=== PATIENT | female | born 1970 | race Caucasian/White ===

== ENCOUNTER 2017-05-02 05:14 | Inpatient (IN) | payer BC ==
[2017-04-26 14:26] VITALS: BMI 24.5
--- NOTE | 2017-05-02 08:21 | HP ---
History & Physical Update - History History: No Change - Physical Physical: No Change - Assessment Assessment: No Change - Plan Plan: No Change
[2017-05-02] MEDS ORDERED: MIDAZOLAM HCL 2 MG/2 ML SINGLE DOSE VIAL ONE ×4 (09:08→09:26)
[2017-05-02] MEDS ORDERED: ROCURONIUM BROMIDE 50 MG/5 ML VIAL ONE (09:08)
[2017-05-02] MEDS ORDERED: PROPOFOL 20 ML ONE ×3 (09:08)
[2017-05-02] MEDS ORDERED: ROPIVACAINE HCL 0.5% 30ML VIAL ONE (09:25)
[2017-05-02] MEDS ORDERED: VASOPRESSIN 20 UNITS/ML VIAL IV ONE (09:50)
[2017-05-02] MEDS ORDERED: DEXAMETHASONE SOD PHOSPHATE 4 MG/1 ML VIAL ONE (10:18)
[2017-05-02] MEDS ORDERED: ceFAZolin SODIUM 1 GM VIAL ONE ×2 (10:24→17:49)
[2017-05-02] MEDS ORDERED: ceFAZolin SODIUM 1 GM VIAL IVPB ONE (10:25)
[2017-05-02] MEDS ORDERED: ACETAMINOPHEN INJECTION 0 ML IVPB ONE (10:30)
[2017-05-02] MEDS ORDERED: ACETAMINOPHEN INJECTION 100 ML IVPB ONE (10:38)
[2017-05-02] MEDS ORDERED: ACETAMINOPHEN 1000 MG/100 ML VIAL (NON FORMULARY) IVPB ONE (10:40)
[2017-05-02] MEDS ORDERED: GLYCOPYRROLATE 0.2 MG/1 ML VIAL ONE (10:45)
[2017-05-02] MEDS ORDERED: NEOSTIGMINE METHYLSULFATE 0.5 MG/ML - 10 ML MDV ONE (10:45)
[2017-05-02] MEDS ORDERED: ONDANSETRON 4 MG/2 ML VIAL ONE (10:45)
[2017-05-02] MEDS ORDERED: SUCCINYLCHOLINE CHLORIDE 200 MG/10 ML VIAL ONE (11:22)
[2017-05-02] MEDS ORDERED: oxyCODONE HCL 5 MG TABLET PO PRN ×2 (11:43)
[2017-05-02] MEDS ORDERED: IBUPROFEN 800 MG/8 ML IJ IVPB PRN (11:43)
--- NOTE | 2017-05-02 11:43 | OP ---
Operative Note - Note: Operative Date: 05/02/17 Pre-Operative Diagnosis: Leiomyomatous Uterus. Left Ovarian Cyst Operation: Abdominal myomectomy. Left Ovarian Cystectomy Findings: 3 cm left ovarian cyst Post-Operative Diagnosis: Same as Pre-op Surgeon: Alison Lopes Information Technology Program Manager: Linda Mckenzie Anesthesia: General Estimated Blood Loss (mls): 40 Operative Report Dictated: Yes
[2017-05-02] MEDS ORDERED: PROMETHAZINE HCL 25 MG/1 ML VIAL IVPUSH PRN (12:04)
[2017-05-02] MEDS ORDERED: ONDANSETRON 4 MG/2 ML VIAL IVPUSH PRN (12:05)
[2017-05-02] MEDS ORDERED: DEXAMETHASONE SOD PHOSPHATE 4 MG/1 ML VIAL IVPUSH PRN (12:05)
[2017-05-02] MEDS ORDERED: PROMETHAZINE HCL 25 MG/1 ML VIAL IVPB PRN (12:05)
[2017-05-02] MEDS: HYDROmorphone *PCA* 10MG/50ML DISP.SYRIN PCA SCH ×3 (12:30→17:31)
[2017-05-02] MEDS ORDERED: BISACODYL 10 MG SUPP.RECT RC PRN (13:12)
[2017-05-02] MEDS: DEXTROSE 5%-LACTATED RINGERS 1,000 ML IV SCH (15:05)
[2017-05-02] MEDS ORDERED: DEXTROSE 5%-WATER - 50 ML IVPB ONE (17:50)
[2017-05-02] MEDS ORDERED: CEFAZOLIN (PRE-DOCKED) 50 ML IVPB SCH (18:00)
[2017-05-02] MEDS: CEFAZOLIN 1 GM in DEXTROSE 5%-WATER - 50 ML IVPB SCH (18:17)
[2017-05-02 18:22] LABS: MCHC 33.7 g/dl (32.0-36.0); MEAN CELL VOLUME 94.8 fl (80-96); MEAN PLT VOLUME 9.8 fl (7.5-11.1); NEUTROPHILS 94.2 % (42.8-82.8); PLATELET COUNT 265 K/MM3 (134-434); RDW 13.2 % (11.6-15.6); WHITE BLOOD COUNT 16.9 K/mm3 (4.0-10.0)
[2017-05-03] MEDS ORDERED: ceFAZolin SODIUM 1 GM VIAL ONE (01:06)
[2017-05-03] MEDS ORDERED: DEXTROSE 5%-WATER - 50 ML IVPB ONE (01:07)
[2017-05-03] MEDS: CEFAZOLIN 1 GM in DEXTROSE 5%-WATER - 50 ML IVPB SCH (01:14)
[2017-05-03 08:33] LABS: BASOPHIL 0.1 % (0-2.0); EOSINOPHIL 0.1 % (0-4.5); MCH 31.8 pg (25.7-33.7); MCHC 33.7 g/dl (32.0-36.0); MEAN CELL VOLUME 94.4 fl (80-96); MEAN PLT VOLUME 10.1 fl (7.5-11.1); NEUTROPHILS 76.3 % (42.8-82.8); PLATELET COUNT 229 K/MM3 (134-434); RDW 12.9 % (11.6-15.6); WHITE BLOOD COUNT 13.9 K/mm3 (4.0-10.0)
[2017-05-03] MEDS: ENOXAPARIN NA (PORCINE) 40 MG/0.4 ML DISP.SYRIN SQ SCH (09:28)
[2017-05-03] MEDS: DEXTROSE 5%-LACTATED RINGERS 1,000 ML IV SCH ×2 (09:33→19:37)
[2017-05-03] MEDS ORDERED: ENOXAPARIN NA (PORCINE) 40 MG/0.4 ML DISP.SYRIN SQ SCH (10:00)
--- NOTE | 2017-05-03 11:06 | OP ---
DATE OF OPERATION: 05/02/2017 PREOPERATIVE DIAGNOSIS: Leiomyomatous uterus and ovarian cyst. OPERATION: Abdominal myomectomy and left ovarian cystectomy. POSTOPERATIVE DIAGNOSIS: Leiomyomatous uterus and ovarian cyst. SURGEON: Alec Lopes MD MUSHROOM PRESS OPERATOR: Linda Mckenzie DO ANESTHESIA: General. PROCEDURE: Patient was taken to the operating room, placed in supine position, prepped and draped in the usual sterile fashion. A time-out was performed in accordance with hospital regulations. Cowan catheter was inserted into the bladder. A Pfannenstiel skin incision was made with the scalpel. Cautery was then used to go through the layers of abdominal wall through to the fascia. Fascia was cut in the midline, and cautery was then used to open the fascia in smiling fashion. Carroll was then used to bluntly and sharply dissect the rectus muscle of the fascia. The fascial muscle was split in the midline. Peritoneal cavity was then entered and carried up and downwards. Uterus was then exteriorized. Abdominal lap pads were then placed to protect the bowel out of the operative field. A 4-5-cm myoma was noted fundally, and numerous myomas were felt in the uterus and serosa posterior. Uterus exteriorized, and tourniquet was placed at the clear space at the broad ligament. Pitressin was then infiltrated into serosa. Cautery was then used to make an incision in the serosa. Blunt and sharp dissection was then used to remove the 5-cm myoma. Attention was then drawn anteriorly where numerous myomas were then removed. Incisions were made, 2 or 3 incisions were made, and 2-cm myomas were then removed. A 1-cm posterior myoma was also removed. Incisions were then closed. Muscles were then closed using 0 Vicryl suture. Skin was then closed using 2-0 V-Loc suture. Hemostasis was achieved at all incisions. Interceed placed. Attention was then drawn to the left ovary where a 3-cm ovarian cyst was noted. Corpus luteum cyst contents were then removed, submitted to Pathology. Cautery of the ovary was then done. Hemostasis was achieved. Tourniquet was then removed. Lap pads were then removed. Pack count was noted to be normal. Clear space at the broad was then coagulated, and sutures were placed due to some bleeding, 0 Vicryl suture both posterior and anterior, figure-of-8 was then placed. Hemostasis was achieved. Irrigation done. Peritoneum closed using 0 Vicryl suture. Fascia was then closed using 0 Vicryl suture in 2 parts. Subcutaneous tissue was then approximated using 2-0 Vicryl with 3 interrupted. Skin was then closed using 4-0 Vicryl in a subcuticular fashion. Wound was washed and dressed. Patient tolerated the procedure well. Estimated blood loss was 40 mL. ALEC LOPES M.D. [id number]
--- NOTE | 2017-05-03 12:47 | PATH ---
Surgical Pathology Report Patient Name: MIROSLAVA BARRAZA [facility]. Rec. #: [id number] /Age/Gender: 1970 (Age: 46) / F Account: [id number] Location: [address] [place] [address]/[facility] Taken: 05/02/2017 Received: 05/02/2017 Reported: 05/03/2017 Physicians: Alison Lopes M.D. Specimen(s) Received A: FIBROIDS B: LEFT OVARIAN CYST Clinical History Fibroid uterus, ovarian cyst Final Diagnosis A. FIBROIDS, ABDOMINAL MYOMECTOMY: FRAGMENTS OF BENIGN SMOOTH MUSCLE, ONE WITH ADMIXED BENIGN ENDOMETRIUM, CONSISTENT WITH LEIOMYOMA AND ADENOMYOMA (TOTAL WEIGHT 62 GM). B. OVARIAN CYST, LEFT, CYSTECTOMY: HEMORRHAGIC CORPUS LUTEUM CYST. Electronically Signed Jose Elias Hart M.D. Gross Description A. Received in formalin labelled "fibroids" is a 62 gram aggregate of portions of rubbery whorled hester tissue grossly consistent with fibroids. There are 5 separate pieces each of which is between 1.0 cm in greatest dimension up to 5.3 x 4.5 x 4.1 cm. Traffic Line Painter sections from smaller pieces are submitted in cassettes A1 and A2. Traffic Line Painter sections from the largest piece is submitted in cassettes A3 and A4. B. Received in formalin labelled "left ovarian cyst" is 1.9 x 0.9 x 0.6 cm piece of dark fine tissue. Cut surface reveals a cystic interior. [facility]/05/02/2017 [facility]/05/02/2017
--- NOTE | 2017-05-03 13:45 | PN ---
Progress Note (short form) - Note Progress Note: Anesthesia Post op/Pain Pt seen and examined S:Alert and awake comfortable O: Vital Signs Temperature 88.3 F L 05/03/17 06:00 Pulse Rate 73 05/03/17 10:00 Respiratory Rate 18 05/03/17 10:00 Blood Pressure 107/56 05/03/17 10:00 O2 Sat by Pulse Oximetry (%) 98 05/03/17 09:00 CBC, BMP 05/03/17 07:00 A/P: Abdominal myomectomy uses her RUBBER TURNER for pain Doing well post op Continue RUBBER TURNER as needed Phillip White MD
--- NOTE | 2017-05-03 14:48 | PN ---
Progress Note (SOAP) - Subjective Chief Complaint: Pt doing well no flatus - Current Medications Current Medications: Active Medications Bisacodyl (Dulcolax Suppository -) 10 mg RC DAILY PRN PRN Reason: CONSTIPATION Enoxaparin Sodium (Lovenox -) 40 mg SQ DAILY [facility] Last Admin: 05/03/17 09:28 Dose: 40 mg Hydromorphone HCl (Dilaudid Director Health -) 10 mg INSTRUMENT AND ELECTRICAL TECHNICIAN INSTRUMENT AND ELECTRICAL TECHNICIAN [facility] PRN Reason: Protocol Stop: 05/09/17 12:05 Last Admin: 05/02/17 17:31 Dose: Not Given Dextrose/Lactated Ringer's (D5-Lr -) 1,000 mls @ 125 mls/hr IV ASDIR [facility] Last Admin: 05/03/17 09:33 Dose: 125 mls/hr Ibuprofen (Caldolor Injection -) 800 mg IVPB Q8H PRN PRN Reason: FEVER Oxycodone HCl (Roxicodone -) 5 mg PO Q4H PRN PRN Reason: PAIN Oxycodone HCl (Roxicodone -) 10 mg PO Q4H PRN PRN Reason: PAIN Promethazine HCl (Phenergan Injection -) 12.5 mg IVPB Q6H PRN PRN Reason: NAUSEA AND/OR VOMITING Simethicone (Mylicon -) 80 mg PO Q4H PRN PRN Reason: GAS - Objective Vital Signs: Vital Signs Temperature 98.5 F 05/03/17 14:35 Pulse Rate 76 05/03/17 14:35 Respiratory Rate 18 05/03/17 14:35 Blood Pressure 97/55 05/03/17 14:35 O2 Sat by Pulse Oximetry (%) 98 05/03/17 09:00 Constitutional: Yes: Well Nourished, No Distress Gastrointestinal: Yes: WNL, Soft, Abdomen, Obese Extremities: Yes: WNL Edema: No Wound/Incision: Yes: Steri Strips, Dressing Removed Psychiatric: Yes: WNL, Alert, Oriented Labs Lab Results: CBC, BMP 05/03/17 07:00 Assessment/Plan POD1 SP MYomectomy No flatus Plan DC home in [place] if passing flatus
[2017-05-03] MEDS: HYDROmorphone *PCA* 10MG/50ML DISP.SYRIN PCA SCH (14:54)
[2017-05-03] MEDS: SIMETHICONE 80 MG TAB.CHEW (FP) PO PRN ×2 (15:58→21:09)
[2017-05-03] MEDS ORDERED: BISACODYL 10 MG SUPP.RECT RC PRN (16:26)
[2017-05-03] MEDS: NORMAL SALINE FLUSH 0.9% 2.5 ML SYRINGE IVPUSH SCH (22:42)
[2017-05-04 00:12] VITALS: TEMP 99.7
[2017-05-04 07:46] VITALS: BP 109/65; PULSE 83
[2017-05-04] MEDS: ENOXAPARIN NA (PORCINE) 40 MG/0.4 ML DISP.SYRIN SQ SCH (09:24)
[2017-05-04] MEDS: NORMAL SALINE FLUSH 0.9% 2.5 ML SYRINGE IVPUSH SCH (09:24)
--- NOTE | 2017-05-04 10:46 | PN ---
Progress Note, Physician Chief Complaint: Pt. pain controlled, resting comfortably, no GA complaints - Current Medication List Current Medications: Active Medications Bisacodyl (Dulcolax Suppository -) 10 mg RC DAILY PRN PRN Reason: CONSTIPATION Last Admin: 05/03/17 21:09 Dose: 10 mg Bisacodyl (Dulcolax Suppository -) 10 mg RC DAILY PRN PRN Reason: CONSTIPATION Enoxaparin Sodium (Lovenox -) 40 mg SQ DAILY [facility] Last Admin: 05/04/17 09:24 Dose: 40 mg Ibuprofen (Caldolor Injection -) 800 mg IVPB Q8H PRN PRN Reason: FEVER Oxycodone HCl (Roxicodone -) 5 mg PO Q4H PRN PRN Reason: PAIN Last Admin: 05/03/17 19:03 Dose: 5 mg Oxycodone HCl (Roxicodone -) 10 mg PO Q4H PRN PRN Reason: PAIN Promethazine HCl (Phenergan Injection -) 12.5 mg IVPB Q6H PRN PRN Reason: NAUSEA AND/OR VOMITING Simethicone (Mylicon -) 80 mg PO Q4H PRN PRN Reason: GAS Last Admin: 05/03/17 21:09 Dose: 80 mg Sodium Chloride (Saline Lock Flush) 2.5 ml IVPUSH BID [facility] Last Admin: 05/04/17 09:24 Dose: 2.5 ml - Objective Vital Signs: Vital Signs Temperature 99.7 F H 05/04/17 06:00 Pulse Rate 83 05/04/17 06:00 Respiratory Rate 20 05/04/17 06:00 Blood Pressure 109/65 05/04/17 06:00 O2 Sat by Pulse Oximetry (%) 97 05/03/17 21:00 Constitutional: Yes: Well Nourished, No Distress, Calm Musculoskeletal: Yes: WNL Neurological: Yes: WNL, Alert, Oriented Labs: CBC, BMP 05/03/17 07:00 Assessment/Plan POD#1 s/p Abdominal myomectomy under GA wit bilateral TAP blocks and Dilaudid LAP CUTTER TRUER OPERATOR. Doing well. D/C LAP CUTTER TRUER OPERATOR
== END 2017-05-04 11:50 | disposition home or self-care (01) | DRG 743 ==
LOC: JSAMEDAYSX 05:14 → EDSTATUS 11:00 → J6S 14:20
PROVIDERS: ADMIT Obstetrics & Gynecology; ATTEND Obstetrics & Gynecology
PROC: 0UB10ZZ Excision of Left Ovary, Open Approach (ICD-10-PCS; 2017-05-02)
PROC: 0UB90ZZ Excision of Uterus, Open Approach (ICD-10-PCS; principal; 2017-05-02 09:30)
DX: D25.9 Leiomyoma of uterus, unspecified (principal); N83.12 Corpus luteum cyst of left ovary
CPT/HCPCS: 36415; 84703; 85025; 88305-TC; 94010; 94760

== ENCOUNTER → 2022-11-04 | Day surgery (SDC) | payer BC | END | disposition home or self-care (01) | LOC: JRADIR 10:04 | PROVIDERS: ATTEND Internal Medicine Endocrinology, Diabetes & Metabolism | PROC: 0G9K3ZX Drainage of Thyroid Gland, Percutaneous Approach, Diagnostic (ICD-10-PCS; principal; 2022-11-04) | DX: E04.1 Nontoxic single thyroid nodule (principal) | CPT/HCPCS: 10005; 76942; 88173; 88305-TC ==